=== PATIENT | male | born 1955 | race Caucasian/White ===

== ENCOUNTER → 2025-02-28 06:40 | Outpatient (REF) | payer MEDICARE, OTHER, SELFPAY ==
[2025-02-28 07:33] LABS: Hematocrit 46.7 % (39.0-52.0); Hemoglobin 15.8 g/dL (13.0-18.0); Mean Corp Hgb Conc. 33.8 g/dL (33.0-37.0); Mean Corpuscular Volume 92.1 fL (80.0-94.0); Nucleated Red Blood Cells % 0 % (-); Platelet Count 184 10^3/uL (130-400); Red Cell Dist. Width 12.2 % (11.5-14.5)
[2025-02-28 07:42] LABS: ALT (SGPT) 18 U/L (0-50); AST (SGOT) 22 U/L (17-59); Albumin 4.4 g/dl (3.5-5.0); Alkaline Phosphatase 70 U/L (38-126); Blood Urea Nitrogen 18 mg/dl (9-20); Calcium 9.3 mg/dl (8.4-10.2); Carbon Dioxide 24 mmol/L (22-30); Chloride 110 mmol/L (98-107); Glucose 107 mg/dl (70-99); HDL Cholesterol 51 mg/dl; LDL Cholesterol, Calculated 179 mg/dl; Potassium 4.8 mmol/L (3.5-5.1); Sodium 139 mmol/L (135-145); Total Protein 6.9 g/dl (6.3-8.2); Very Low Density Lipoprotein 25 mg/dl (0-30); eGFR > 60.00
[2025-02-28 08:11] LABS: PSA, Total - Screen 1.41 ng/ml (0.0-4.0)
== END ==
LOC: REG 06:40
PROVIDERS: ATTENDING PHYSICIAN Family Medicine
DX: Z12.11 Encounter for screening for malignant neoplasm of colon (principal); M25.511 Pain in right shoulder; G89.29 Other chronic pain; J45.20 Mild intermittent asthma, uncomplicated; I44.7 Left bundle-branch block, unspecified; Z95.0 Presence of cardiac pacemaker; I10 Essential (primary) hypertension; Z00.00 Encounter for general adult medical examination without abnormal findings; Z12.5 Encounter for screening for malignant neoplasm of prostate
CPT/HCPCS: 36415; 73030; 80053; 80061; 85025; G0103

== ENCOUNTER → 2025-05-21 08:06 | Outpatient (REF) | payer MEDICARE, OTHER, SELFPAY | LOC: RCS 08:06 | PROVIDERS: ATTENDING PHYSICIAN Nuclear Medicine Nuclear Cardiology; FAMILY PHYSICIAN Family Medicine | DX: Z95.0 Presence of cardiac pacemaker (principal); I44.2 Atrioventricular block, complete | CPT/HCPCS: 93306 ==